=== PATIENT | male | born 1960 | race Caucasian/White ===

== ENCOUNTER 2017-07-20 13:10 | Emergency (ER) | payer OTHER ==
[~2017-07-20] VITALS: Ht 188 cm; Wt 100.0 kg
[2017-07-20 14:14] LABS: INFLUENZA A NONE DETECTED (NONE DETECT); INFLUENZA B NONE DETECTED (NONE DETECT)
[2017-07-20 14:52] VITALS: BP 137/93
== END 2017-07-20 14:53 | disposition home or self-care (01) | DRG 153 ==
LOC: ED 13:10
PROVIDERS: Family Medicine
DX: J02.9 Acute pharyngitis, unspecified (principal); J45.909 Unspecified asthma, uncomplicated; K21.9 Gastro-esophageal reflux disease without esophagitis; X03.0XXA Exposure to flames in controlled fire, not in building or structure, initial encounter